=== PATIENT | male | born 1975 | race Two or more races ===

== ENCOUNTER 2017-05-26 18:59 | Emergency (ER) | payer OTHER ==
[2017-05-26 19:10] VITALS: BP 119/82
[2017-05-26] MEDS ORDERED: Ondansetron ODT TAB* 4 MG PO ONE ×2 (19:23→20:36)
--- NOTE | 2017-05-26 20:42 | UC ---
Татьяна Graham SooYoung, scribed for Dave Morris MD on 05/26/17 at 1944 . Abdominal Pain Male HPI - HPI Summary HPI Summary: A 42 y/o M presents to [facility] c/o suprapubic abd pain that waxes and wanes onset approx noon after drinking coffee and tea. Pain described as cramping. When he ate toast at 1530, the cramping worsened. He has taken three doses of Pepto. Associated sx: nausea, bloating, fever of 101 F onset at 1000. Denies vomiting/ diarrhea, urinary sx. Last BM was yesterday. His had similar symptoms yesterday, both ate pizza yesterday. Pt states he felt OK yesterday. No prev abd surgeries. Pt is scheduled to fly tomorrow. - History of Current Complaint Chief Complaint: UCAbdominalPain Stated Complaint: ABDOMINAL PAIN C Time Seen by Provider: 05/26/17 19:08 Hx Obtained From: Patient Onset/Duration: Sudden Onset, Lasting Hours - starting this morning, Still Present - but much improved Timing: Intermittent Episodes Lasting: Severity Initially: Severe Severity Currently: Moderate Pain Intensity: 8 - at worst Pain Scale Used: 0-10 Numeric Location: Suprapubic Character: Cramping Aggravating Factor(s): Food Associated Signs And Symptoms: Positive: Fever, Nausea, Other - pos: bloating,. Negative: Urinary Symptoms, Vomiting, Diarrhea - Allergies/Home Medications Allergies/Adverse Reactions: Allergies Allergy/AdvReac Type Severity Reaction Status Date / Time No Known Allergies Allergy Verified 05/26/17 19:10 PMH/Surg Hx/FS Hx/Imm Hx Previously Healthy: Yes - neg: legally blind, deafness Neurological History: Other Other Neurological History: dementia - Surgical History Surgical History: None - Family History Known Family History: Negative: Cardiac Disease, Hypertension, Diabetes - Social History Occupation: Employed Full-time Lives: With Family Alcohol Use: Occasionally Substance Use Type: None Smoking Status (MU): Never Smoked Tobacco Review of Systems Constitutional: Fever - pt reports fever of 101 Respiratory: Other - negative cough Gastrointestinal: Abdominal Pain, Nausea, Other - pos: bloating. neg: vomiting/ diarrhea Genitourinary: Other - urinary sx All Other Systems Reviewed And Are Negative: Yes Physical Exam Triage Information Reviewed: Yes Appearance: Ill-Appearing - MILDLY, Pain Distress - mildly Vital Signs: Initial Vital Signs Temp 96.8 F 05/26/17 19:06 Pulse 82 05/26/17 19:06 Resp 16 05/26/17 19:06 BP 119/82 05/26/17 19:06 Pulse Ox 97 05/26/17 19:06 Vital Signs Reviewed: Yes Eyes: Positive: Other: - EOMI, LYLE ENT Exam: Normal ENT: Positive: Other - oral mucosa is moist Neck: Positive: Supple, Nontender Respiratory: Positive: Lungs clear, Normal breath sounds Cardiovascular: Positive: RRR Abdomen Description: Positive: Other: - tender around umbilicus and lower abd RLQ worse than LLQ Bowel Sounds: Positive: Present Musculoskeletal: Positive: Other: - negative heel strike; positive obturator sign Neurological Exam: Normal Neurological: Positive: Alert - A&Ox3, Muscle Tone Normal Psychological: Positive: Age Appropriate Behavior Skin: Positive: Other - warm, skin color reflects adequate perfusion, dry Abd Pain Male Course/Dx - Course Course Of Treatment: A 42 y/o M presents to [facility] c/o abd cramping that waxes and wanes under belly button onset this morning after drinking coffee and tea. He ate coffee and toast at 1530 and the cramping got severely worse about 45 minutes later. He has taken three doses of Pepto-bismol. Denies vomiting, diarrhea. Associated sx: nausea, bloating, fever of 101 before cramping occurred. Nml urination but cannot pass BM. His has similar symptoms yesterday. Normal BP reading and no follow-up instructions required. Medications reviewed. MILD IMPROVEMENT IN THE CLINIC AFTER PO ZOFRAN. WE DISCUSSED THE SIGNS AND SX OF APPENDICITIS AND GOING TO THE EMERGENCY DEPARTMENT FOR FURTHER EVALUATION AND CARE. AT THIS TIME, THE PATIENT PREFERS TO GO HOME AND DETERMINE IF HE IS CONTINUING TO IMPROVE. IF HE WORSENS, HE WILL GO TO THE EMERGENCY DEPARTMENT. - Differential Dx/Clinical Impression Provider Diagnoses: ABDOMINAL PAIN Discharge - Discharge Plan Condition: Stable Disposition: HOME Prescriptions: Ondansetron ODT TAB* [Zofran 4 MG Odt TAB*] 4 mg PO Q6H PRN #10 tab.odt PRN Reason: Nausea Patient Education Materials: Abdominal Pain (ED) Referrals: Hitesh Reeves MD [Primary Care Provider] - Additional Instructions: FOLLOW UP WITH YOUR DOCTOR. GO TO THE EMERGENCY DEPARTMENT FOR ANY WORSENING OF YOUR CONDITION; PAIN, ESPECIALLY PAIN IN THE RIGHT LOWER ABDOMEN WHICH COULD BE APPENDICITIS, FEVER, YOU FEEL ILL, DEHYDRATION OR QUESTIONS OR CONCERNS. The documentation as recorded by the Татьяна yuen SooYoung accurately reflects the service I personally performed and the decisions made by me, Dave Morris MD.
== END 2017-05-26 20:25 | disposition home or self-care (01) ==
LOC: UCEAST 18:59
DX: R10.30 Lower abdominal pain, unspecified (principal); H54.8 Legal blindness, as defined in USA; H91.90 Unspecified hearing loss, unspecified ear
CPT/HCPCS: 99212; A9270-GY; G0463